=== PATIENT | male | born 1980 | race Caucasian/White ===

== ENCOUNTER 2020-12-04 03:01 | Emergency (ER) | payer OTHER ==
[2020-12-04 03:50] LABS: HEMOGLOBIN 14.7 gm/dl (14.0-17.5); RED BLOOD COUNT 4.91 M/UL (4.20-5.50); WHITE BLOOD COUNT 12.9 K/UL (4.5-11.0)
[2020-12-04 03:56] LABS: BUN/CREATININE RATIO 10 (0-10)
[2020-12-04] MEDS ORDERED: IBUPROFEN800 MG PO (04:46)
[2020-12-04] MEDS ORDERED: ZOFRAN 4 MG TAB4 MG PO (04:46)
[2020-12-04] MEDS ORDERED: HYDROCODON-ACE1 EAC4 PO ×2 (04:46→05:16)
[2020-12-04] MEDS ORDERED: FLOMAX0.4 MG PO (04:46)
== END 2020-12-04 05:22 | disposition home or self-care (01) ==
LOC: ER1 03:01
PROVIDERS: Emergency Medicine
DX: N13.2 Hydronephrosis with renal and ureteral calculous obstruction (principal); E11.9 Type 2 diabetes mellitus without complications; F17.210 Nicotine dependence, cigarettes, uncomplicated; Z87.442 Personal history of urinary calculi; Z79.899 Other long term (current) drug therapy
CPT/HCPCS: 80053; 81001; 85025; 96374; 99284; J1885